=== PATIENT | female | born 1965 | race African-American/Black ===

== ENCOUNTER 2017-09-25 10:24 | Inpatient (IN) | payer MEDICAID, OTHER ==
[~2017-09-25] VITALS: Ht 175.3 cm; Wt 91.6 kg
[2017-09-25] VITALS (7 sets, daily range): BP systolic 153–183; BP diastolic 94–111; PULSE 80–110; RESP 16–20; TEMP 98.1; O2SAT 96–98
[2017-09-25 11:07] LABS: BASOPHIL # 0.1 TH/MM3 (0-0.2); EOSINOPHIL # 0.5 TH/MM3 (0-0.4); EOSINOPHIL % 6.7 % (0.0-4.0); HEMATOCRIT 47.3 % (35.0-46.0); HEMO FLAGS DIFF FINAL; LYMPH % 23.5 % (9.0-44.0); LYMPHOCYTE # 1.9 TH/MM3 (1.0-4.8); MEAN CELL VOLUME 90.2 FL (80.0-100.0); MEAN CORPUSCULAR HEMOGLOBIN 28.9 PG (27.0-34.0); NEUT % 62.8 % (16.0-70.0); PLATELET COUNT 238 TH/MM3 (150-450); RED BLOOD COUNT 5.24 MIL/MM3 (4.00-5.30)
--- NOTE | 2017-09-25 11:09 | PD ---
HPI Chief Complaint: Psychiatric Symptoms Time Seen by Provider: 11:05 Travel History International Travel<30 days: No Contact w/Intl Traveler<30days: No Traveled to known affect area: No History of Present Illness HPI 52-year-old Afro-Vincentian female presents the emergency department with voluntary psychiatric problems. Patient reports severe depression with thoughts of desire to burn her house down. She denies threat to other people or herself. She states she is severely depressed and tearful. She also has history of COPD with increased cough and wheezing the last week. Patient denies fever, chills, or other symptoms. Patient has history of this in the past. She denies nausea or vomiting. He is complaining of generalized itching and pruritus over the past week. Patient admits to using cocaine 4 days ago. She denies current chest pain or palpitations. Preliminary labs ordered in triage as well as EKG. Patient has no known drug allergies. PFSH Past Medical History Cardiovascular Problems: Yes Social History Tobacco Use: Yes Substance Use: Yes Allergies-Medications (Allergen,Severity, Reaction): Coded Allergies: No Known Allergies (Unverified , 09/25/17) Review of Systems Except as stated in HPI: all other systems reviewed are Neg General / Constitutional: No: Fever, Chills Eyes: No: Visual changes HENT: No: Headaches, Vertigo, Lightheadedness, Sore Throat, Rhinitis, Rhinorrhea, Congestion, Nosebleed, Neck Stiffness, Neck Pain, Dental Difficulties, Earache Cardiovascular: No: Chest Pain or Discomfort Respiratory: Positive: Cough, Shortness of Breath, Wheezing, No: Sneezing, Orthopnea, Hemoptysis, Night Sweats, Pleuritic Pain Gastrointestinal: No: Nausea, Vomiting, Diarrhea, Abdominal Pain Genitourinary: No: Dysuria Musculoskeletal: No: Pain Skin: No Rash Neurologic: No: Weakness Psychiatric: Positive: Depression, Other Endocrine: No: Polydipsia Hematologic/Lymphatic: No: Easy Bruising Physical Exam Narrative GENERAL: Patient appears tearful and depressed SKIN: Warm and dry. HEAD: Atraumatic. Normocephalic. EYES: Pupils equal and round. No scleral icterus. No injection or drainage. ENT: No nasal bleeding or discharge. Mucous membranes pink and moist. Pharynx is clear. Airway is patent. TMs are clear. NECK: Trachea midline. Supple nontender. CARDIOVASCULAR: Regular rate and rhythm. RESPIRATORY: No accessory muscle use. Moderate diffuse wheezes throughout to auscultation. Breath sounds equal bilaterally. GASTROINTESTINAL: Abdomen soft, non-tender, nondistended. Hepatic and splenic margins not palpable. MUSCULOSKELETAL: Extremities without clubbing, cyanosis, or edema. No obvious deformities. NEUROLOGICAL: Awake and alert. No obvious cranial nerve deficits. Motor grossly within normal limits. Five out of 5 muscle strength in the arms and legs. Normal speech. PSYCHIATRIC: Depressed mood and sad affect; insight and judgment normal. Patient tearful. Data Data Last Documented VS Vital Signs Date Time Temp Pulse Resp B/P (MAP) Pulse Ox O2 Delivery O2 Flow Rate FiO2 09/25/17 11:58 97 21 09/25/17 11:45 Nasal Cannula 2.00 09/25/17 11:45 16 09/25/17 10:24 98.1 110 Orders Orders Complete Blood Count With Diff (09/25/17 10:30) Comprehensive Metabolic Panel (09/25/17 10:30) Urinalysis - C+S If Indicated (09/25/17 10:30) Psych Screen (09/25/17 10:30) Drug Screen, Random Urine (09/25/17 10:30) Alcohol (Ethanol) (09/25/17 10:30) Electrocardiogram (09/25/17 ) Chest, Single Ap (09/25/17 11:05) Ecg Monitoring (09/25/17 11:05) Iv Access Insert/Monitor (09/25/17 11:05) Oximetry (09/25/17 11:05) Oxygen Administration (09/25/17 11:05) Prednisone (Deltasone) (09/25/17 11:15) Albuterol-Ipratropium Neb (Duoneb Neb) (09/25/17 11:15) Sodium Chloride 0.9% Flush (Ns Flush) (09/25/17 11:15) Diphenhydramine Inj (Benadryl Inj) (09/25/17 11:15) Azithromycin (Zithromax) (09/25/17 11:15) Urine Culture (09/25/17 10:36) Ceftriaxone Inj (Rocephin Inj) (09/25/17 11:15) Labs Laboratory Tests Test 09/25/17 10:36 09/25/17 10:47 Urine Color YELLOW Urine Turbidity CLOUDY Urine pH 6.0 Urine Specific [place] 1.020 Urine Protein 100 mg/dL Urine Glucose (UA) NEG mg/dL Urine Ketones NEG mg/dL Urine Occult Blood MOD Urine Nitrite NEG Urine Bilirubin NEG Urine Urobilinogen LESS THAN 2.0 MG/DL Urine Leukocyte Esterase LARGE Urine RBC 35 /hpf Urine WBC /hpf Urine Squamous Epithelial Cells 43 /hpf Urine Bacteria MOD /hpf Urine Hyaline Casts 11 /lpf Urine Mucus FEW /lpf Microscopic Urinalysis Comment CULTURE INDICATED White Blood Count 8.0 TH/MM3 Red Blood Count 5.24 MIL/MM3 Hemoglobin 15.1 GM/DL Hematocrit 47.3 % Mean Corpuscular Volume 90.2 FL Mean Corpuscular Hemoglobin 28.9 PG Mean Corpuscular Hemoglobin Concent 32.0 % Red Cell Distribution Width 15.0 % Platelet Count 238 TH/MM3 Mean Platelet Volume 8.9 FL Neutrophils (%) (Auto) 62.8 % Lymphocytes (%) (Auto) 23.5 % Monocytes (%) (Auto) 6.0 % Eosinophils (%) (Auto) 6.7 % Basophils (%) (Auto) 1.0 % Neutrophils # (Auto) 5.0 TH/MM3 Lymphocytes # (Auto) 1.9 TH/MM3 Monocytes # (Auto) 0.5 TH/MM3 Eosinophils # (Auto) 0.5 TH/MM3 Basophils # (Auto) 0.1 TH/MM3 CBC Comment DIFF FINAL Differential Comment Blood Urea Nitrogen 15 MG/DL Creatinine 1.95 MG/DL Random Glucose 80 MG/DL Total Protein 7.2 GM/DL Albumin 3.4 GM/DL Calcium Level 9.0 MG/DL Alkaline Phosphatase 91 U/L Aspartate Amino Transf (AST/SGOT) 21 U/L Alanine Aminotransferase (ALT/SGPT) 35 U/L Total Bilirubin 0.9 MG/DL Sodium Level 142 MEQ/L Potassium Level 3.8 MEQ/L Chloride Level 108 MEQ/L Carbon Dioxide Level 25.8 MEQ/L Anion Gap 8 MEQ/L Estimat Glomerular Filtration Rate 33 ML/MIN Ethyl Alcohol Level LESS THAN 3 MG/DL MDM Medical Decision Making Medical Screen Exam Complete: Yes Emergency Medical Condition: Yes Medical Record Reviewed: Yes Differential Diagnosis COPD with acute exacerbation. Wheezing. Depression. Need for psychiatric eval. Narrative Course Patient appears medically stable at time of exam. Labs ordered including CBC, CMP, psychiatric panel, and serum EtOH Chest x-ray and EKG is ordered. IV access is obtained patient is given 125 mg Solu-Medrol IV as well as 500 mg azithromycin by mouth. Patient given Rocephin 1000 mg IV. Patient is given DuoNeb 3. Patient is given Benadryl 25 mg IV. Psychiatric screening is ordered. CBC is unremarkable. CMP is unremarkable except for a BUN 15 and creatinine of 1.95. GFR is estimated at 33. I have no previous labs to compare. Urinalysis suggests obvious UTI. Serum EtOH is less than 3. Patient will be continued on Keflex 500 mg 3 times a day 7 days. Patient is medically cleared for psychiatric evaluation. Diagnosis Primary Impression: Medical clearance for psychiatric admission Additional Impressions: COPD exacerbation UTI (urinary tract infection) Qualified Codes: N30.00 - Acute cystitis without hematuria Condition: Stable Bartolo Herrera Sep 25, 2017 11:09
[2017-09-25 11:11] LABS: BACTERIA, URINE MOD /hpf; BLOOD, URINE MOD (NEG); COMMENT (UR) CULTURE INDICATED; CULTURE IF INDICATED CULTURE INDICATED; GLUCOSE,URINE NEG (NEG); HYALINE CAST, URINE 11 /lpf (RARE); KETONE, URINE NEG (NEG); MUCUS URINE FEW /lpf (OCC); NITRITE,URINE NEG (NEG); SQUAMOUS EPITHELIAL CELL URINE 43 /hpf (0-5); URINE COLOR YELLOW (YELLW/STRAW)
[2017-09-25] MEDS ORDERED: AZITHROMYCIN 250 MG TAB PO ONE (11:15)
[2017-09-25] MEDS ORDERED: cefTRIAXone INJ 1,000 MG in SODIUM CHLORIDE 0.9% INJ 100 ML IV ONE (11:15)
[2017-09-25] MEDS ORDERED: SODIUM CHLORIDE 0.9% FLUSH 10 ML FLUSH IVF PRN (11:15)
[2017-09-25] MEDS ORDERED: predniSONE 20 MG TAB PO ONE (11:15)
[2017-09-25] MEDS ORDERED: diphenhydrAMINE HCL 50 MG/ML VIAL IV PUSH ONE (11:15)
--- NOTE | 2017-09-25 11:34 | RADRPT ---
EXAM DATE/TIME: 09/25/2017 11:17 [facility] COMPARISON: No previous studies available for comparison. INDICATIONS : Shortness of breath. MEDICAL HISTORY : Smoker. SURGICAL HISTORY : Pacemaker. ENCOUNTER: Initial ACUITY: 2 days PAIN SCORE: 0/10 LOCATION: Bilateral chest FINDINGS: The lungs are clear. The heart is minimally enlarged. The pulmonary vascularity is normal. There is n o evidence for infiltrate or failure. Pacer on the left good position. The portion of the bony skeleton visualized is unremarkable. CONCLUSION: Compensated cardiomegaly otherwise negative Johan Richardson MD FACR on September 25, 2017 at 11:31 Board Certified Radiologist. This report was verified electronically.
[2017-09-25 11:35] LABS: ALKALINE PHOSPHATASE 91 U/L (45-117); TOTAL BILIRUBIN ADULT 0.9 MG/DL (0.2-1.0)
[2017-09-25 11:36] LABS: ALCOHOL LESS THAN 3 MG/DL (0-5); ALT (GPT) 35 U/L (10-53); ANION GAP 8 MEQ/L (5-15); AST (GOT) 21 U/L (15-37); BICARBONATE 25.8 MEQ/L (21.0-32.0); BLOOD UREA NITROGEN 15 MG/DL (7-18); CHLORIDE 108 MEQ/L (98-107); GLOMERULAR FILTRATION RATE 33 ML/MIN (>89); POTASSIUM 3.8 MEQ/L (3.5-5.1); SODIUM (NA) 142 MEQ/L (136-145)
[2017-09-25] MEDS: RESP: ALBUTEROL 2.5 MG/IPRATROPIUM 0.5 MG NEB (SCH) INH (11:57)
[2017-09-25] MEDS ORDERED: CEPH-460 PO (12:28)
[2017-09-25] MEDS ORDERED: METOPROLOL TARTRATE 100 MG TAB PO ONE (15:45)
[2017-09-25] MEDS ORDERED: FUROSEMIDE 40 MG TAB PO ONE (15:45)
[2017-09-25] MEDS ORDERED: ENALAPRIL MALEATE 5 MG TAB PO ONE (15:45)
[2017-09-25] MEDS ORDERED: amLODIPine BESYLATE 5 MG TAB PO ONE (15:45)
[2017-09-25] MEDS ORDERED: SPIRONOLACTONE 25 MG TAB PO ONE (15:45)
[2017-09-25] MEDS ORDERED: DOCU1CAP66 (16:20)
[2017-09-25] MEDS ORDERED: AMLO5TAB2 PO (16:20)
[2017-09-25] MEDS ORDERED: ASPI-516 CHEW (16:20)
[2017-09-25] MEDS ORDERED: HYDR-3801 PO (16:20)
[2017-09-25] MEDS ORDERED: SERT-129 PO (16:20)
[2017-09-25] MEDS ORDERED: SPIR25TA PO (16:20)
[2017-09-25] MEDS ORDERED: POTA10TA2 PO (16:20)
[2017-09-25] MEDS ORDERED: ENAL5TAB PO (16:20)
[2017-09-25] MEDS ORDERED: RISP2TAB2 PO (16:20)
[2017-09-25] MEDS ORDERED: TRAZ50TA12 PO (16:20)
[2017-09-25] MEDS ORDERED: METO1TAB43 PO (16:20)
[2017-09-25] MEDS ORDERED: MULT1TAB46 (16:20)
[2017-09-25] MEDS ORDERED: FURO40TA PO (16:20)
--- NOTE | 2017-09-25 19:51 | PD ---
History of Present Illness Chief Complaint: Psychiatric Symptoms Time Seen by Provider: 19:20 Travel History International Travel<30 Days: No Contact w/Intl Traveler<30days: No Known affected area: No Legal Status Legal Status: Voluntary History of Present Illness: History of Present Illness HPI 52-year-old Afro-Italian female with history of schizoaffective disorder, cocaine abuse, substance-induced mood disorder, who presents the emergency department on a voluntary status requesting psychiatric evaluation. Patient is well known to this repairer typewriter from previous psychiatric screening. She currently has another record under [facility]y Ram[facility]. She reports that she has been increasingly depressed with poor sleep, low energy level, spending a lot of time in bed. Also reports that she is having homicidal ideation towards a cousin of her home she feels is antagonizing her. Stressors reported include the of her mother approximately a year and a half ago, her strained relationship with her half sister and her cousin, and her multiple medical problems. Patient stopped taking her psychiatric medications as well as her other medical medications several weeks ago. She states "when I get depressed I stopped taking my medicine". She also reports that she used cocaine 4 days ago. Current toxicology is negative. Patient has not acted on her thoughts and comes into the hospital with expectation of resuming her medications as well as to maintain her safety.. She is alert, oriented female who is engaging and cooperative, speech is clear, logical, goal-directed. She denies any hallucinations, delusions or paranoia. She denies suicidal ideation. Endorses continued thoughts of wanting to harm her cousin as well as increased symptoms of depression. PFSH Past Medical History Cardiovascular Problems: Yes (defibrilator) ?: Not Psychiatric History Psychiatric History Hx Psychiatric Treatment: Hx tx @ [facility] [place]. Last psychiatric admission February 2017 under the care of Dr. Das. Has outpatient treatment at [facility]. History of Inpatient Treatment: Yes Guns or firearms in home: No Social History female, lives with her cousins. Unemployed and on disability. Patient has past legal history including incarceration for charges related to arson. Hx Alcohol Use: No Hx Tobacco Use: Yes Hx Substance Use: Yes (HX of cocaine) Substance Use Type: Crack, Cocaine Other Substances Used: Admits she relapsed 1 week ago Hx of Substance Use Treatment: Yes Family Psychiatric History Negative Allergies-Medications (Allergen,Severity, Reaction): Coded Allergies: No Known Allergies (Unverified , 09/25/17) Reported Meds & Prescriptions Reported Meds & Active Scripts Active Keflex (Cephalexin) 500 Mg Capsule 500 Mg PO Q8H 7 Days Reported Spironolactone 25 Mg Tab 25 Mg PO BIDPC Sertraline (Sertraline HCl) 100 Mg Tab 100 Mg PO DAILY Trazodone (Trazodone HCl) 50 Mg Tab 50 Mg PO HS Potassium Chloride ER (Potassium Chloride) 10 Meq Tab 10 Meq PO DAILY Hydralazine (Hydralazine HCl) 100 Mg Tab 25 Mg PO BID Take with meals Aspirin 81 Mg Chew 81 Mg CHEW DAILY Risperidone 2 Mg Tab 2 Mg PO DAILY Metoprolol Succinate ER 24 HR (Metoprolol Succinate) 100 Mg Tab 100 Mg PO DAILY Amlodipine (Amlodipine Besylate) 5 Mg Tab 5 Mg PO DAILY Multi Vitamin Daily (Multiple Vitamin) 1 Tab Tab DAILY Furosemide 40 Mg Tab 40 Mg PO DAILY Stool Softener (Docusate Sodium) 100 Mg Cap PRN Enalapril (Enalapril Maleate) 5 Mg Tab 5 Mg PO BID Review of Systems Constitutional: COMPLAINS OF: Fatigue Respiratory: COMPLAINS OF: Apneas, Cough, Shortness of breath Cardiovascular: COMPLAINS OF: Chest pain Integumentary: COMPLAINS OF: Pruritus Psychiatric: COMPLAINS OF: Depression, Homicidal Ideation Mental Status Examination Appearance: Appropriate (appears older than stated age.) Consciousness: Alert Orientation: x4 Motor Activity: Normal gait Speech: Unremarkable Language: Adequate Fund of Knowledge: Adequate Attention and Concentration: Adequate Memory: Unremarkable Mood: Sad Affect: Appropriate Thought Process & Associations: Intact Thought Content: Appropriate Hallucination Type: None Delusion Type: None Suicidal Ideation: No Suicidal Plan: No Suicidal Intention: No Homicidal Ideation: Yes Homicidal Plan: No Homicidal Intention: No Insight: Fair Judgment: Poor MDM Medical Decision Making Medical Record Reviewed: Yes Assessment/Plan 52-year-old Afro-Italian female with history of schizoaffective disorder, cocaine abuse, substance-induced mood disorder, who presents the emergency department on a voluntary status requesting psychiatric evaluation. She currently has another record under Pinky Ramírez. She reports that she stopped taking her medications several weeks ago and has experienced increase in symptoms of depression including poor sleep, low energy level, anhedonia, as well as experiencing thoughts of wanting to harm her cousin. Patient also admits to having used cocaine 4 days ago. She reports that she feels overwhelmed with multiple medical problems at this time and this is contributing to her symptoms of depression. At this time the patient meets criteria for inpatient psychiatric treatment for further evaluation, to restart her psychiatric medication, and to maintain safety. She agrees to voluntary admission. Orders Orders Complete Blood Count With Diff (09/25/17 10:30) Comprehensive Metabolic Panel (09/25/17 10:30) Urinalysis - C+S If Indicated (09/25/17 10:30) Psych Screen (09/25/17 10:30) Drug Screen, Random Urine (09/25/17 10:30) Alcohol (Ethanol) (09/25/17 10:30) Electrocardiogram (09/25/17 ) Chest, Single Ap (09/25/17 11:05) Ecg Monitoring (09/25/17 11:05) Iv Access Insert/Monitor (09/25/17 11:05) Oximetry (09/25/17 11:05) Oxygen Administration (09/25/17 11:05) Prednisone (Deltasone) (09/25/17 11:15) Albuterol-Ipratropium Neb (Duoneb Neb) (09/25/17 11:15) Sodium Chloride 0.9% Flush (Ns Flush) (09/25/17 11:15) Diphenhydramine Inj (Benadryl Inj) (09/25/17 11:15) Azithromycin (Zithromax) (09/25/17 11:15) Urine Culture (09/25/17 10:36) Ceftriaxone Inj (Rocephin Inj) (09/25/17 11:15) Furosemide (Lasix) (09/25/17 15:45) Enalapril (Vasotec) (09/25/17 15:45) Metoprolol Tartrate (Lopressor) (09/25/17 15:45) Amlodipine (Norvasc) (09/25/17 15:45) Spironolactone (Aldactone) (09/25/17 15:45) Diet Regular Basic (09/25/17 Dinner) Results Vital Signs Date Time Temp Pulse Resp B/P (MAP) Pulse Ox O2 Delivery O2 Flow Rate FiO2 09/25/17 18:02 88 18 159/109 (126) 98 Room Air 09/25/17 15:33 98 18 183/111 (135) 97 Room Air 09/25/17 14:01 98 18 158/94 (115) 96 Room Air 09/25/17 11:58 97 21 09/25/17 11:45 96 Nasal Cannula 2.00 09/25/17 11:45 16 96 Nasal Cannula 2.00 09/25/17 10:24 98.1 110 20 163/105 (124) 97 Room Air Laboratory Tests Test 09/25/17 10:36 09/25/17 10:47 Urine Color YELLOW Urine Turbidity CLOUDY Urine pH 6.0 Urine Specific [place] 1.020 Urine Protein 100 Urine Glucose (UA) NEG Urine Ketones NEG Urine Occult Blood MOD Urine Nitrite NEG Urine Bilirubin NEG Urine Urobilinogen LESS THAN 2.0 Urine Leukocyte Esterase LARGE Urine RBC 35 Urine WBC Urine Squamous Epithelial Cells 43 Urine Bacteria MOD Urine Hyaline Casts 11 Urine Mucus FEW Microscopic Urinalysis Comment CULTURE INDICATED White Blood Count 8.0 Red Blood Count 5.24 Hemoglobin 15.1 Hematocrit 47.3 Mean Corpuscular Volume 90.2 Mean Corpuscular Hemoglobin 28.9 Mean Corpuscular Hemoglobin Concent 32.0 Red Cell Distribution Width 15.0 Platelet Count 238 Mean Platelet Volume 8.9 Neutrophils (%) (Auto) 62.8 Lymphocytes (%) (Auto) 23.5 Monocytes (%) (Auto) 6.0 Eosinophils (%) (Auto) 6.7 Basophils (%) (Auto) 1.0 Neutrophils # (Auto) 5.0 Lymphocytes # (Auto) 1.9 Monocytes # (Auto) 0.5 Eosinophils # (Auto) 0.5 Basophils # (Auto) 0.1 CBC Comment DIFF FINAL Differential Comment Blood Urea Nitrogen 15 Creatinine 1.95 Random Glucose 80 Total Protein 7.2 Albumin 3.4 Calcium Level 9.0 Alkaline Phosphatase 91 Aspartate Amino Transf (AST/SGOT) 21 Alanine Aminotransferase (ALT/SGPT) 35 Total Bilirubin 0.9 Sodium Level 142 Potassium Level 3.8 Chloride Level 108 Carbon Dioxide Level 25.8 Anion Gap 8 Estimat Glomerular Filtration Rate 33 Ethyl Alcohol Level LESS THAN 3 Date/Time Source Procedure Growth Status 09/25/17 10:36 Urine Clean Catch Urine Culture Pending Worksheet Diagnosis Primary Impression: Schizoaffective disorder Additional Impression: Substance induced mood disorder Admitting Information Admitting Physician Requests: Admit Departure Forms: Tests/Procedures Patient Instructions: General Instructions, Cephalexin (By mouth), COPD ( Chronic Obstructive Pulmonary Disease) (ED) Prescriptions Cephalexin (Keflex) 500 Mg Capsule 500 MG PO Q8H for Infection for 7 Days, #21 CAP 0 Refills Prov: Marce Elizondo DO 09/25/17 Condition: Stable Problem Qualifiers Primary Impression: Schizoaffective disorder Qualified Codes: F25.1 - Schizoaffective disorder, depressive type Emily Zepeda [facility] Sep 25, 2017 19:51
[2017-09-25] MEDS ORDERED: MAGNESIUM HYDROXIDE SUSP 30 ML CUP PO PRN (20:00)
[2017-09-25] MEDS ORDERED: ALUMINUM/MAGNESIUM/SIMETH 30 ML CUP PO PRN (20:00)
[2017-09-25] MEDS ORDERED: ACETAMINOPHEN 325 MG TAB PO PRN (20:00)
[2017-09-25] MEDS: traZODone HCL 50 MG TAB PO SCH (22:22)
[2017-09-25] MEDS: hydrALAZINE HCL 25 MG TAB PO SCH (22:22)
--- NOTE | 2017-09-25 22:22 | EKG ---
Date Performed: 09/25/2017 Time Performed: 10:39:27 PTAGE: 52 years EKG: SINUS TACHYCARDIA LEFT ATRIAL ENLARGEMENT BORDERLINE LEFT AXIS DEVIATION LEFT VENTRICULAR H YPERTROPHY AND ST-T CHANGE ABNORMAL ECG NO PREVIOUS TRACING DOCTOR: Regulo Steve Interpretating Date/Time 09/25/2017 22:21:57
[2017-09-25] MEDS: CEPHALEXIN MONOHYDRATE 500 MG CAP PO SCH (23:42)
[2017-09-25] MEDS: ENALAPRIL MALEATE 5 MG TAB PO SCH (23:42)
[2017-09-26 00:19] VITALS: BP 143/94; PULSE 80; RESP 16; TEMP 98.2
[2017-09-26 05:50] VITALS: BP 144/95; PULSE 77; RESP 16; TEMP 98; O2SAT 95
[2017-09-26] MEDS: CEPHALEXIN MONOHYDRATE 500 MG CAP PO SCH ×3 (05:58→20:33)
[2017-09-26] MEDS: ENALAPRIL MALEATE 5 MG TAB PO SCH ×2 (09:53→20:31)
[2017-09-26] MEDS: hydrALAZINE HCL 25 MG TAB PO SCH ×2 (09:54→20:30)
[2017-09-26] MEDS: FUROSEMIDE 40 MG TAB PO SCH (09:54)
[2017-09-26] MEDS: SPIRONOLACTONE 25 MG TAB PO SCH ×2 (09:54→18:00)
[2017-09-26] MEDS: METOPROLOL SUCCINATE 50 MG EXTENDED RELEASE TAB PO SCH (09:54)
[2017-09-26] MEDS: amLODIPine BESYLATE 5 MG TAB PO SCH (09:54)
[2017-09-26] MEDS: ASPIRIN 81 MG CHEW TAB CHEW SCH (09:55)
[2017-09-26] MEDS: POTASSIUM CHLORIDE 10 MEQ CONTROLLED RELEASE TAB PO SCH (09:55)
--- NOTE | 2017-09-26 12:35 | HHI.HP ---
Provisional Diagnosis Admission Date Sep 25, 2017 at 20:02 [place]. Schizoaffective disorder bipolar type f 25.0, cocaine abuse Certification of Person's Competence To Provide Express and Informed Consent I have personally examined Pinky Ramírez , a person being served at [facility] on, Sep 26, 2017 12:25. Express and informed consent means consent voluntarily given in writing, by a competent person, after sufficient explanation and disclosure of the subject matter involved to enable the person to make a knowing and willful decision without any element of force, fraud, deceit, duress, or other form of constraint or coercion. This person is 18 years of age or older, is not now known to be incompetent to consent to treatment with a guardian advocate, and does not have a health care surrogate or proxy currently making medical treatment decisions. I have found this person to be one of the following: []xxxx Competent to provide express and informed consent, as defined above, for voluntary admission to this facility and is competent to provide express and informed consent for treatment. He/she has the consistent capacity to make well reasoned, willful, and knowing decisions concerning his or her medical or mental health treatment. The person fully and consistently understands the purpose of the admission for examination/placement and is fully capable of personally exercising all rights assured [place] Incompetent to provide express and informed consent to voluntary admission, and this is incompetent to provide express and informed consent to treatment. The person must be transferred to involuntary status and a petition for a guardian advocate filed with the Circuit Court. [] Refusing to provide express and informed consent to voluntary admission but is competent to provide express and informed consent for treatment. The person must be discharged or transferred to involuntary status. Form shall be completed within 24 hours of a person's arrival at the receiving facility and filed in the clinical record of each person: 1. Admitted on a voluntary basis 2. Permitted to provide express and informed consent to his/her own treatment 3. Allowed to transfer from involuntary to voluntary status 4. Prior to permitting a person to consent to his or her own treatment after having been previously found incompetent to consent to treatment. History of Present Illness Capacity: Has Capacity Psych Chief Complaint: patient depressed vague suicidal ideation HPI Patient is a 52-year-old Afro-Niuean female known to me from prior contact. [facility] she also has a different hospital number than the one listed above were the hospital number is [id number] I saw her in early February of this year under visit [phone]. She has a long history of cocaine abuse with multiple medical issues including cardiac issues. With the last hospitalization in February she was transferred to the medical service. She had cardiac issues. She was discharged at that medical admission after being consulted with Dr. Anderson. Discharged on Resporal 1 mg twice a day. She states she went to live with a family member and it drug infested area. In April of this year she did have a cardiac pacemaker implanted. She was noncompliant with psychotropic medications or psychiatric follow-up. She did develop increased depression with initial and mid insomnia a.m. anergy and increased crying spells. This led to her relapse into her cocaine use about a week or 2 ago. She denies voices or visions other some vague tactile hallucinations present there is increase suicidal ideation and intent. Patient did come here on a voluntary basis. The urine toxicology and this admission is also positive for cocaine and negative for alcohol. This time patient does meet criteria for inpatient psychiatric hospitalization will restart her on her Respinol 1 mg twice a day, Zoloft 50 mg in the morning trazodone 50 mg at at bedtime and Atarax 50 mg when necessary. Will refrain from benzodiazepines and opiates. Though the hospitalist consult with us. We did discuss discharge plans patient does have a daughter in [place] that may be willing to take her in when she stabilizes need to work with that or perhaps an [facility]. Review of Systems Constitutional: DENIES: Diaphoretic episodes, Fatigue, Fever, Weight gain, Weight loss, Chills, Dizziness, Change in appetite, Night Sweats Endocrine: DENIES: Abnorml menstrual pattern, Heat/cold intolerance, Polydipsia , Polyuria, Polyphagia Eyes: DENIES: Blurred vision, Diplopia, Eye inflammation, Eye pain, Vision loss , Photosensitivity, Double Vision Ears, nose, mouth, throat: DENIES: Tinnitus, Hearing loss, Vertigo, Nasal discharge, Oral lesions, Throat pain, Hoarseness, Ear Pain, Running Nose, Epistaxis, Sinus Pain, Toothache, Odynophagia Respiratory: DENIES: Apneas, Cough, Snoring, Wheezing, Hemoptysis, Sputum production, Shortness of breath Cardiovascular: DENIES: Chest pain, Palpitations, Syncope, Dyspnea on Exertion , PND, Lower Extremity Edema, Orthopnea, Claudication Gastrointestinal: DENIES: Abdominal pain, Black stools, Bloody stools, Constipation, Diarrhea, Nausea, Vomiting, Difficulty Swallowing, Anorexia Genitourinary: DENIES: Abnormal vaginal bleeding, Dysmenorrhea, Dyspareunia, Sexual dysfunction, Urinary frequency, Urinary incontinence, Urgency, Hematuria , Dysuria, Nocturia, Vaginal discharge Musculoskeletal: DENIES: Joint pain, Muscle aches, Stiffness, Joint Swelling, Back pain, Neck pain Integumentary: DENIES: Abnormal pigmentation, Pruritus, Rash, Nail changes, Breast masses, Breast skin changes, Nipple discharge Hematologic/lymphatic: DENIES: Bruising, Lymphadenopathy Immunologic/allergic: DENIES: Eczema, Urticaria Neurologic: DENIES: Abnormal gait, Headache, Localized weakness, Paresthesias, Seizures, Speech Problems, Tremor, Poor Balance Psychiatric: COMPLAINS OF: Anxiety, Depression, Hallucinations, Suicidal Ideation (vague tactile vague) Past Psych History Psychological trauma history Patient denies Violence risk - others (6 mos) Low Violence risk - self (6 mos) Low to moderate Substance Abuse History Drugs/Alcohol past 12 months Active cocaine abuser Past Family Social History Coded Allergies: No Known Allergies (Unverified , 09/25/17) Active Scripts Cephalexin (Keflex) 500 Mg Capsule, 500 MG PO Q8H for Infection for 7 Days, #21 CAP 0 Refills Prov:ElizondoMarce Elie PARTIDA 09/25/17 Reported Medications Spironolactone (Spironolactone) 25 Mg Tab, 25 MG PO BIDPC, #60 TAB 0 Refills 09/25/17 Sertraline (Sertraline) 100 Mg Tab, 100 MG PO DAILY, #30 TAB 0 Refills 09/25/17 Trazodone (Trazodone) 50 Mg Tab, 50 MG PO HS for Control Depression, #30 TAB 0 Refills 09/25/17 Potassium Chloride ER (Potassium Chloride ER) 10 Meq Tab, 10 MEQ PO DAILY for Electrolyte Replacement, #30 TAB 0 Refills 09/25/17 Hydralazine (Hydralazine) 100 Mg Tab, 25 MG PO BID for Blood Pressure Management , TAB 0 Refills Take with meals 09/25/17 Aspirin (Aspirin) 81 Mg Chew, 81 MG CHEW DAILY, TAB 0 Refills 09/25/17 Risperidone (Risperidone) 2 Mg Tab, 2 MG PO DAILY, #30 TAB 0 Refills 09/25/17 Metoprolol Succinate ER 24 HR (Metoprolol Succinate ER 24 HR) 100 Mg Tab, 100 MG PO DAILY, #30 TAB 0 Refills 09/25/17 Amlodipine (Amlodipine) 5 Mg Tab, 5 MG PO DAILY for Blood Pressure Management, # 30 TAB 0 Refills 09/25/17 Multiple Vitamin (Multi Vitamin Daily) 1 Tab Tab, DAILY 09/25/17 Furosemide (Furosemide) 40 Mg Tab, 40 MG PO DAILY, #30 TAB 0 Refills 09/25/17 Docusate Sodium (Stool Softener) 100 Mg Cap, Y for PRN 09/25/17 Enalapril (Enalapril) 5 Mg Tab, 5 MG PO BID, #60 TAB 0 Refills 09/25/17 Current Medications Medications (Trade) Dose Ordered Sig/Fadi Route Start Time Stop Time Status Last Admin (NS Flush) 2 ml UNSCH PRN IVF 09/25/17 11:15 (Tylenol) 650 mg Q4H PRN PO 09/25/17 20:00 (Milk Of Magnesia Liq) 30 ml DAILY PRN PO 09/25/17 20:00 (Mag-Al Plus Susp Liq) 30 ml Q6H PRN PO 09/25/17 20:00 (Norvasc) 5 mg DAILY PO 09/26/17 09:00 09/26/17 09:54 (Aspirin Chew) 81 mg DAILY CHEW 09/26/17 09:00 09/26/17 09:55 (Keflex) 500 mg Q8HR PO 09/25/17 22:00 09/26/17 05:58 (Vasotec) 5 mg BID PO 09/25/17 21:00 09/26/17 09:53 (Lasix) 40 mg DAILY PO 09/26/17 09:00 09/26/17 09:54 (Apresoline) 25 mg BID PO 09/25/17 21:00 09/26/17 09:54 (KCl) 10 meq DAILY PO 09/26/17 09:00 09/26/17 09:55 (Aldactone) 25 mg BIDPC PO 09/26/17 09:00 09/26/17 09:54 (Desyrel) 50 mg HS PO 09/25/17 21:00 09/25/17 22:22 (Toprol Xl) 100 mg DAILY PO 09/26/17 09:00 09/26/17 09:54 Family Psych History Patient multiple hospitalizations for mental health issues under different hospital number which is [id number] Social History Patient was staying with relative Patient's Strengths (min. 2) Patient verbal label axis health care Physical Exam Patient medically cleared in ED at the present time patient quietly in her room nurse Clary present throughout session, patient no acute distress patient no respiratory distress, no complaints of abdominal pain, moves all 4 extremities without difficulty, no abnormal motor movements noted Vital Signs Vital Signs Date Time Temp Pulse Resp B/P (MAP) Pulse Ox O2 Delivery O2 Flow Rate FiO2 09/26/17 05:50 98.0 77 16 144/95 (111) 95 09/25/17 20:41 Room Air 09/25/17 11:58 21 09/25/17 11:45 2.00 Lab Results Date/Time Source Procedure Growth Status 09/25/17 10:36 Urine Clean Catch Urine Culture Pending Worksheet Mental Status Examination Appearance: Appropriate (appears older than stated age.) Consciousness: Alert Orientation: x4 Motor Activity: Normal gait Speech: Unremarkable Language: Adequate Fund of Knowledge: Adequate Attention and Concentration: Adequate Memory: Unremarkable Mood: Sad Affect: Other (slight decrease range and intensity) Thought Process & Associations: Intact Thought Content: Appropriate Hallucination Type: None, Tactile (vague feeling things are skin) Delusion Type: None Suicidal Ideation: No Suicidal Plan: No Suicidal Intention: No Homicidal Ideation: No Homicidal Plan: No Homicidal Intention: No Insight: Fair Judgment: Poor Assessment & Plan Problem List: (1) Schizoaffective disorder, bipolar type ICD Codes: F25.0 - Schizoaffective disorder, bipolar type (2) Cocaine abuse ICD Codes: F14.10 - Cocaine abuse, uncomplicated Assessment & Plan Estimated LOS: 57 days patient meets criteria for inpatient psychiatric hospitalization on a voluntary basis. We will restart her on her Respinol, Zoloft, trazodone and Atarax. Though the hospitalist consult will less. Will have counseled the patient related to placement issues perhaps an [facility] or perhaps staying with her daughter in [place] Discharge Planning Need to consider [facility] placement versus going with her daughter in [place] Request HC Surrog/Guard Advoc?: No Sachin Das MD Sep 26, 2017 12:35
[2017-09-26] MEDS ORDERED: PILL SPLITTER OTHER PRN (13:00)
[2017-09-26] MEDS ORDERED: EUCERIN CREAM 120 GM JAR TOPICAL PRN (13:15)
--- NOTE | 2017-09-26 13:22 | PD.CONS ---
HPI Service [facility] Hospitalists Consult Requested By Dr. Zepeda Reason for Consult assistance w medical management Primary Care Physician No Primary Care Physician Diagnoses: History of Present Illness Pt is a 52 yr old AA female w PMHx of CHF, HTN, CKD, cocaine abuse admitted to the inpatient psychiatric unit for suicidal ideation. Pt admits that she uses cocaine and last time was a week ago. pt states that she has been hearing voices on and off and they have been telling her to "burn her house down w gas" . Currently she states that she doesn't hear them, also complains of itchiness. Denies any CP/SOB/N/V/burning w urination and states that she urinates a lot as she is on a medication that makes her urinate. Pt doesn't have any complaints. states she is on many BP meds but doesn't remember the names. Per RN pt is currently being treated for a UTI. Hospitalist service consulted for medical management. Review of Systems Except as stated in HPI: all other systems reviewed are Neg Past Family Social History Allergies: Coded Allergies: No Known Allergies (Unverified , 09/25/17) Past Medical History CHF, cocaine abuse, HTN and CKD Past Surgical History tubal ligation Reported Medications Reported Meds & Active Scripts Active Keflex (Cephalexin) 500 Mg Capsule 500 Mg PO Q8H 7 Days Reported Spironolactone 25 Mg Tab 25 Mg PO BIDPC Sertraline (Sertraline HCl) 100 Mg Tab 100 Mg PO DAILY Trazodone (Trazodone HCl) 50 Mg Tab 50 Mg PO HS Potassium Chloride ER (Potassium Chloride) 10 Meq Tab 10 Meq PO DAILY Hydralazine (Hydralazine HCl) 100 Mg Tab 25 Mg PO BID Take with meals Aspirin 81 Mg Chew 81 Mg CHEW DAILY Risperidone 2 Mg Tab 2 Mg PO DAILY Metoprolol Succinate ER 24 HR (Metoprolol Succinate) 100 Mg Tab 100 Mg PO DAILY Amlodipine (Amlodipine Besylate) 5 Mg Tab 5 Mg PO DAILY Multi Vitamin Daily (Multiple Vitamin) 1 Tab Tab DAILY Furosemide 40 Mg Tab 40 Mg PO DAILY Stool Softener (Docusate Sodium) 100 Mg Cap PRN Enalapril (Enalapril Maleate) 5 Mg Tab 5 Mg PO BID Family History mother of natural causes per patient and father of a [place] Social History smokes a 1/2 ppd since age 37, denies any alcohol used but admits to using cocaine Physical Exam Vital Signs Vital Signs Date Time Temp Pulse Resp B/P (MAP) Pulse Ox O2 Delivery O2 Flow Rate FiO2 09/26/17 05:50 98.0 77 16 144/95 (111) 95 09/26/17 00:19 98.2 80 16 143/94 (110) 09/25/17 20:45 09/25/17 20:41 80 18 153/105 (121) 98 Room Air 09/25/17 18:02 88 18 159/109 (126) 98 Room Air 09/25/17 15:33 98 18 183/111 (135) 97 Room Air 09/25/17 14:01 98 18 158/94 (115) 96 Room Air Physical Exam GENERAL: AA female, laying in bed, appears comfortable. SKIN: dry skin. HEAD: Atraumatic. Normocephalic. EYES: eyes closed but does open them from time to time. Extraocular motions intact. No scleral icterus. No injection or drainage. ENT: Nose without drainage. Airway patent. NECK: Trachea midline. CARDIOVASCULAR: Regular rate and rhythm without obvious murmurs RESPIRATORY: Clear to auscultation. Breath sounds equal bilaterally. No wheezes or crackles GASTROINTESTINAL: Abdomen soft, non-tender, nondistended. No guarding. MUSCULOSKELETAL: Extremities without edema. NEUROLOGICAL: Awake and alert. Cranial nerves II through XII intact. Motor and sensory grossly within normal limits. Normal speech. Laboratory Date/Time Source Procedure Growth Status 09/25/17 10:36 Urine Clean Catch Urine Culture - Final 50-100,000 CFU/ML MIXED GRAM POSITIVE... Complete Result Diagram: 09/25/17 1047 09/25/17 1047 Imaging Last Impressions Chest X-Ray 09/25/17 1105 Signed Impressions: Service Date/Time: Monday, September 25, 2017 11:17 - CONCLUSION: Compensated cardiomegaly otherwise negative Johan Richardson MD FACR Assessment and Plan Assessment and Plan Suicidal ideation/auditory hallucination and ?tactile hallucinations: management per psych HTN: somewhat elevated since admission in the 140's. Pt's BP meds have all been resumed. added clonidine prn. heart healthy diet CHF: asymptomatic currently. place on a heart healthy diet and limit fluids to 1500ml/day. continue lasix. monitor K levels cocaine abuse: pt has been counseled on quitting acute on chronic CKD: pt admits to hx of CKD, Pt is also known as Darrell Quiñones under [id number] per Dr. Das's note. Reviewed records and Cr was 1.56 in 03/10/17. on admission Cr was 1.95. Will encourage some po hydration water 250-300ml q6hrs while awake but limit to 1500ml/day. Discussed w RN. Repeat BMP in am. DVT proph: heparin and encourage ambulation Thank you for allowing me to take part of Mrs. Ramírez's care, will follow BMP and BP's Code Status full Discussed Condition With pt and RN Chanell Du MD Sep 26, 2017 13:22
[2017-09-26] MEDS ORDERED: cloNIDine HCL 0.1 MG TAB PO PRN (13:30)
[2017-09-26] MEDS: SERTRALINE HCL 50 MG TAB PO SCH (14:33)
[2017-09-26] MEDS: risperiDONE ODT 1 MG TAB PO SCH ×2 (14:33→20:30)
[2017-09-26 18:20] LABS: ANION GAP 9 MEQ/L (5-15); BICARBONATE 28.5 MEQ/L (21.0-32.0); BLOOD UREA NITROGEN 27 MG/DL (7-18); CHLORIDE 103 MEQ/L (98-107); GLOMERULAR FILTRATION RATE 29 ML/MIN (>89); HDL CHOLESTEROL 60.4 MG/DL (40.0-60.0); LDL CHOLESTEROL 53 MG/DL (0-99); POTASSIUM 3.3 MEQ/L (3.5-5.1); SODIUM (NA) 140 MEQ/L (136-145)
[2017-09-26 18:33] VITALS: BP 146/94; PULSE 88; RESP 18; TEMP 97.6; O2SAT 98
[2017-09-26] MEDS: traZODone HCL 50 MG TAB PO SCH (20:31)
[2017-09-26] MEDS: HEPARIN SODIUM - SQ 10,000 UNITS/ML VIAL SQ SCH (21:00)
[2017-09-26 21:48] LABS: HEMOGLOBIN A1a 1.1 %; HEMOGLOBIN A1b 1.7 %; HEMOGLOBIN Ao 85.1 %; HEMOGLOBIN P3 5.3 %
[2017-09-27] MEDS: CEPHALEXIN MONOHYDRATE 500 MG CAP PO SCH ×3 (05:47→20:43)
[2017-09-27 06:31] VITALS: BP 132/64; PULSE 75; RESP 17; TEMP 97; O2SAT 100
[2017-09-27] MEDS: ASPIRIN 81 MG CHEW TAB CHEW SCH (08:34)
[2017-09-27] MEDS: risperiDONE ODT 1 MG TAB PO SCH ×2 (08:34→20:43)
[2017-09-27] MEDS: SPIRONOLACTONE 25 MG TAB PO SCH ×2 (08:34→18:56)
[2017-09-27] MEDS: METOPROLOL SUCCINATE 50 MG EXTENDED RELEASE TAB PO SCH (08:35)
[2017-09-27] MEDS: amLODIPine BESYLATE 5 MG TAB PO SCH (08:35)
[2017-09-27] MEDS: ENALAPRIL MALEATE 5 MG TAB PO SCH ×2 (08:35→20:43)
[2017-09-27] MEDS: hydrALAZINE HCL 25 MG TAB PO SCH ×2 (08:35→20:43)
[2017-09-27] MEDS: SERTRALINE HCL 50 MG TAB PO SCH (08:35)
[2017-09-27] MEDS: POTASSIUM CHLORIDE 10 MEQ CONTROLLED RELEASE TAB PO SCH (08:35)
[2017-09-27] MEDS: HEPARIN SODIUM - SQ 10,000 UNITS/ML VIAL SQ SCH ×2 (08:36→21:00)
[2017-09-27] MEDS: FUROSEMIDE 40 MG TAB PO SCH (08:36)
[2017-09-27 14:38] LABS: BICARBONATE 25.2 MEQ/L (21.0-32.0); POTASSIUM 4.2 MEQ/L (3.5-5.1)
--- NOTE | 2017-09-27 15:32 | HHI.PR ---
Subjective Remarks patient states feels depressed d/w her cocaine use- and states she used it because of she is depressed no urinary complains, nausea headaches Objective Vitals Vital Signs Date Time Temp Pulse Resp B/P (MAP) Pulse Ox O2 Delivery O2 Flow Rate FiO2 09/27/17 08:14 09/27/17 06:31 97.0 75 17 132/64 (86) 100 09/26/17 18:33 97.6 88 18 146/94 (111) 98 Result Diagram: 09/25/17 1047 09/27/17 1339 Imaging Last Impressions Chest X-Ray 09/25/17 1105 Signed Impressions: Service Date/Time: Monday, September 25, 2017 11:17 - CONCLUSION: Compensated cardiomegaly otherwise negative Johan Richardson MD FACR Objective Remarks awake and alert, appears depressed anicteric lungs0- no rales regular rhythm abdomen spft, nontender extremiteis no edema neuro examn non focal A/P Assessment and Plan 52 F Depression. Suicidal ideation/auditory hallucination and ?tactile hallucinations : management per psych HTN: good this am Pt's BP meds have all been resumed. added clonidine prn. heart healthy diet CHF: asymptomatic currently. place on a heart healthy diet and limit fluids to 1500ml/day. continue lasix. cocaine abuse: pt has been counseled on quitting acute on chronic CKD: pt admits to hx of CKD, Pt is also known as Darrell Quiñones under [id number] per Dr. Das's note. Reviewed records and Cr was 1.56 in 03/10/17. on admission Cr was 1.95. Will encourage some po hydration water 250-300ml q6hrs while awake but limit to 1500ml/day. Discussed w RN. creatinine today- near baseline DVT proph: heparin and encourage ambulation d/w patient Tutu Roblero MD Sep 27, 2017 15:32
--- NOTE | 2017-09-27 16:03 | HHI.PYPN ---
Subjective Chief Complaint: patient depressed vague suicidal ideation Remarks Patient seen in day room with nurse Oscar, chart review, showing some increased in her mood and her affect though she still says that she is depressed though she denies suicidality or voices. She is compliant with her medications. For now continue treatment Review of Systems Except as stated in HPI: all other systems reviewed are Neg Mental Status Examination Appearance: Appropriate (appears older than stated age.) Consciousness: Alert Orientation: x4 Motor Activity: Normal gait Speech: Unremarkable Language: Adequate Fund of Knowledge: Adequate Attention and Concentration: Adequate Memory: Unremarkable Mood: Sad Affect: Other (slight decrease range and intensity) Thought Process & Associations: Intact Thought Content: Appropriate Hallucination Type: None, Tactile (vague feeling things are skin) Delusion Type: None Suicidal Ideation: No Suicidal Plan: No Suicidal Intention: No Homicidal Ideation: No Homicidal Plan: No Homicidal Intention: No Insight: Fair Judgment: Poor Results Labs Test 09/26/17 16:47 09/27/17 13:39 Blood Urea Nitrogen 27 MG/DL 27 MG/DL Creatinine 2.18 MG/DL 1.94 MG/DL Random Glucose 75 MG/DL 81 MG/DL Calcium Level 8.7 MG/DL 8.7 MG/DL Sodium Level 140 MEQ/L 142 MEQ/L Potassium Level 3.3 MEQ/L 4.2 MEQ/L Chloride Level 103 MEQ/L 109 MEQ/L Carbon Dioxide Level 28.5 MEQ/L 25.2 MEQ/L Anion Gap 9 MEQ/L 8 MEQ/L Estimat Glomerular Filtration Rate 29 ML/MIN 33 ML/MIN Hemoglobin A1c 5.6 % Triglycerides Level 109 MG/DL Cholesterol Level 135 MG/DL LDL Cholesterol 53 MG/DL HDL Cholesterol 60.4 MG/DL Cholesterol/HDL Ratio 2.23 RATIO Date/Time Source Procedure Growth Status 09/25/17 10:36 Urine Clean Catch Urine Culture - Final 50-100,000 CFU/ML MIXED GRAM POSITIVE... Complete Vitals/IOs Vital Signs Date Time Temp Pulse Resp B/P (MAP) Pulse Ox O2 Delivery O2 Flow Rate FiO2 09/27/17 08:14 09/27/17 06:31 97.0 75 17 100 09/25/17 20:41 Room Air 09/25/17 11:58 21 09/25/17 11:45 2.00 Assessment & Plan Problem List: (1) Schizoaffective disorder, bipolar type ICD Codes: F25.0 - Schizoaffective disorder, bipolar type (2) Cocaine abuse ICD Codes: F14.10 - Cocaine abuse, uncomplicated Assessment & Plan Estimated LOS: days patient continues depressed though denying suicidality homicidality or voices at this time. For now continue treatment Justification for Cont. Inpt. At this time patient would decompensate the placed in a lower level of care Discharge Planning To be determined Request HC Surrog/Guard Advoc?: No Sachin Das MD Sep 27, 2017 16:03
[2017-09-27] MEDS: traZODone HCL 50 MG TAB PO SCH (20:43)
[2017-09-27 20:44] VITALS: BP 157/89; PULSE 86; RESP 17; TEMP 97.2; O2SAT 99
[2017-09-27] MEDS: hydrOXYzine HCL 50 MG TAB PO PRN (21:27)
[2017-09-28] MEDS: CEPHALEXIN MONOHYDRATE 500 MG CAP PO SCH ×3 (06:13→21:01)
[2017-09-28 06:25] VITALS: BP 132/67; PULSE 66; RESP 18; TEMP 98.3; O2SAT 99
[2017-09-28] MEDS: risperiDONE ODT 1 MG TAB PO SCH ×2 (08:32→20:19)
[2017-09-28] MEDS: ENALAPRIL MALEATE 5 MG TAB PO SCH ×2 (08:32→20:19)
[2017-09-28] MEDS: SERTRALINE HCL 50 MG TAB PO SCH (08:32)
[2017-09-28] MEDS: SPIRONOLACTONE 25 MG TAB PO SCH ×2 (08:32→18:10)
[2017-09-28] MEDS: ASPIRIN 81 MG CHEW TAB CHEW SCH (08:33)
[2017-09-28] MEDS: amLODIPine BESYLATE 5 MG TAB PO SCH (08:33)
[2017-09-28] MEDS: POTASSIUM CHLORIDE 10 MEQ CONTROLLED RELEASE TAB PO SCH (08:33)
[2017-09-28] MEDS: hydrALAZINE HCL 25 MG TAB PO SCH ×2 (08:33→20:19)
[2017-09-28] MEDS: METOPROLOL SUCCINATE 50 MG EXTENDED RELEASE TAB PO SCH (08:33)
[2017-09-28] MEDS: FUROSEMIDE 40 MG TAB PO SCH (08:33)
[2017-09-28] MEDS: HEPARIN SODIUM - SQ 10,000 UNITS/ML VIAL SQ SCH ×2 (08:34→21:00)
--- NOTE | 2017-09-28 14:20 | HHI.PYPN ---
Subjective Chief Complaint: patient depressed vague suicidal ideation Remarks Patient seen and a room nurse [place]. He should coming from [place], patient showing some slight increase affect. She does denies suicidality at this time she somewhat vague about voices but overall compliant medication. Will increase Respinol 2 mg twice a day continue to monitor weekend. Patient states she can go live with one of her siblings when she is discharged Review of Systems Except as stated in HPI: all other systems reviewed are Neg Mental Status Examination Appearance: Appropriate (appears older than stated age.) Consciousness: Alert Orientation: x4 Motor Activity: Normal gait Speech: Unremarkable Language: Adequate Fund of Knowledge: Adequate Attention and Concentration: Adequate Memory: Unremarkable Mood: Sad Affect: Other (slight decrease range and intensity) Thought Process & Associations: Intact Thought Content: Appropriate Hallucination Type: None, Tactile (vague feeling things are skin) Delusion Type: None Suicidal Ideation: No Suicidal Plan: No Suicidal Intention: No Homicidal Ideation: No Homicidal Plan: No Homicidal Intention: No Insight: Fair Judgment: Poor Results Labs Date/Time Source Procedure Growth Status 09/25/17 10:36 Urine Clean Catch Urine Culture - Final 50-100,000 CFU/ML MIXED GRAM POSITIVE... Complete Vitals/IOs Vital Signs Date Time Temp Pulse Resp B/P (MAP) Pulse Ox O2 Delivery O2 Flow Rate FiO2 09/28/17 06:25 98.3 66 18 132/67 (88) 99 09/25/17 20:41 Room Air 09/25/17 11:58 21 09/25/17 11:45 2.00 Intake and Output 09/28/17 09/28/17 09/29/17 08:00 16:00 00:00 Intake Total 120 ml Balance 120 ml Assessment & Plan Problem List: (1) Schizoaffective disorder, bipolar type ICD Codes: F25.0 - Schizoaffective disorder, bipolar type (2) Cocaine abuse ICD Codes: F14.10 - Cocaine abuse, uncomplicated Assessment & Plan Estimated LOS: days patient some increase in affect now denies suicidality. Is somewhat vague about voices today. See medication adjustment above Justification for Cont. Inpt. At this time patient will decompensate placed in a lower level of care Discharge Planning Possible placement with one of her siblings Request HC Surrog/Guard Advoc?: No Sachin Das MD Sep 28, 2017 14:20
--- NOTE | 2017-09-28 14:29 | HHI.PR ---
Subjective Remarks up and ambulating no complains, smiling and interactive requesting for a regular diet Objective Vitals Vital Signs Date Time Temp Pulse Resp B/P (MAP) Pulse Ox O2 Delivery O2 Flow Rate FiO2 09/28/17 06:25 98.3 66 18 132/67 (88) 99 09/27/17 20:45 09/27/17 20:44 97.2 86 17 157/89 (111) 99 I/O 09/27/17 09/27/17 09/27/17 09/28/17 09/28/17 09/28/17 07:00 15:00 23:00 07:00 15:00 23:00 Intake Total 240 ml 120 ml Balance 240 ml 120 ml Intake Oral 240 ml 120 ml Result Diagram: 09/25/17 1047 09/27/17 1339 Imaging Last Impressions Chest X-Ray 09/25/17 1105 Signed Impressions: Service Date/Time: Monday, September 25, 2017 11:17 - CONCLUSION: Compensated cardiomegaly otherwise negative Johan Richardson MD FACR Objective Remarks awake and alert, appears happy- smiling anicteric lungs0- no rales regular rhythm abdomen soft, nontender extremities no edema neuro examn non focal A/P Assessment and Plan 52 F Depression. Suicidal ideation/auditory hallucination and ?tactile hallucinations : management per psych HTN: continue meds. adjust as needed. better readings overall CHF: asymptomatic currently. place on a heart healthy diet and limit fluids to 1500ml/day. continue lasix. cocaine abuse: pt has been counseled on quitting acute on chronic CKD: pt admits to hx of CKD, Pt is also known as Darrell Quiñones under [id number] per Dr. Das's note. Reviewed records and Cr was 1.56 in 03/10/17. on admission Cr was 1.95. Will encourage some po hydration water 250-300ml q6hrs while awake but limit to 1500ml/day. Discussed w RN. creatinine - near baseline DVT proph: heparin and encourage ambulation d/w patient- we discussed about her diet Tutu Roblero MD Sep 28, 2017 14:29
[2017-09-28 19:02] VITALS: BP 132/87; PULSE 69; RESP 16; TEMP 98; O2SAT 98
[2017-09-28] MEDS: traZODone HCL 50 MG TAB PO SCH (20:19)
[2017-09-28] MEDS: hydrOXYzine HCL 50 MG TAB PO PRN (21:01)
[2017-09-29 05:55] VITALS: BP 139/89; PULSE 76; RESP 17; TEMP 98; O2SAT 99
[2017-09-29] MEDS: CEPHALEXIN MONOHYDRATE 500 MG CAP PO SCH ×3 (06:16→22:11)
[2017-09-29] MEDS: ENALAPRIL MALEATE 5 MG TAB PO SCH ×2 (08:59→22:31)
[2017-09-29] MEDS: hydrALAZINE HCL 25 MG TAB PO SCH ×2 (08:59→22:12)
[2017-09-29] MEDS: SERTRALINE HCL 50 MG TAB PO SCH (08:59)
[2017-09-29] MEDS: POTASSIUM CHLORIDE 10 MEQ CONTROLLED RELEASE TAB PO SCH (09:00)
[2017-09-29] MEDS: HEPARIN SODIUM - SQ 10,000 UNITS/ML VIAL SQ SCH ×2 (09:00→22:13)
[2017-09-29] MEDS: METOPROLOL SUCCINATE 50 MG EXTENDED RELEASE TAB PO SCH (09:00)
[2017-09-29] MEDS: FUROSEMIDE 40 MG TAB PO SCH (09:00)
[2017-09-29] MEDS: SPIRONOLACTONE 25 MG TAB PO SCH ×2 (09:00→18:12)
[2017-09-29] MEDS: amLODIPine BESYLATE 5 MG TAB PO SCH (09:01)
[2017-09-29] MEDS: risperiDONE ODT 1 MG TAB PO SCH ×2 (09:01→22:11)
[2017-09-29] MEDS: ASPIRIN 81 MG CHEW TAB CHEW SCH (09:01)
--- NOTE | 2017-09-29 14:51 | HHI.PYPN ---
Subjective Chief Complaint: patient depressed vague suicidal ideation Remarks Patient was seen and case discussed with nursing. Patient admits to poor compliance before admission. Insight remains poor. She says her hallucinations have resolved today. Behaving well on the unit Mental Status Examination Appearance: Appropriate (appears older than stated age.) Consciousness: Alert Orientation: x4 Motor Activity: Normal gait Speech: Unremarkable Language: Adequate Fund of Knowledge: Adequate Attention and Concentration: Adequate Memory: Unremarkable Mood: Sad Affect: Other (slight decrease range and intensity) Thought Process & Associations: Intact Thought Content: Appropriate Hallucination Type: None, Tactile (vague feeling things are skin) Delusion Type: None Suicidal Ideation: No Suicidal Plan: No Suicidal Intention: No Homicidal Ideation: No Homicidal Plan: No Homicidal Intention: No Insight: Poor Judgment: Poor Results Labs Date/Time Source Procedure Growth Status 09/25/17 10:36 Urine Clean Catch Urine Culture - Final 50-100,000 CFU/ML MIXED GRAM POSITIVE... Complete Vitals/IOs Vital Signs Date Time Temp Pulse Resp B/P (MAP) Pulse Ox O2 Delivery O2 Flow Rate FiO2 09/29/17 05:55 98.0 76 17 139/89 (106) 99 09/25/17 20:41 Room Air 09/25/17 11:58 21 09/25/17 11:45 2.00 Intake and Output 09/29/17 09/29/17 09/30/17 08:00 16:00 00:00 Intake Total 480 ml 240 ml Balance 480 ml 240 ml Assessment & Plan Problem List: (1) Schizoaffective disorder, bipolar type ICD Codes: F25.0 - Schizoaffective disorder, bipolar type (2) Cocaine abuse ICD Codes: F14.10 - Cocaine abuse, uncomplicated Assessment & Plan Continue current treatment plan Justification for Cont. Inpt. Patient would decompensate in a less restrictive setting Request HC Surrog/Guard Advoc?: No Keegan Ramon DO Sep 29, 2017 14:51
--- NOTE | 2017-09-29 16:54 | HHI.PR ---
Subjective Remarks smiling and interactive no complains no shortness of breath requesting for her maintenance inhalers Objective Vitals Vital Signs Date Time Temp Pulse Resp B/P (MAP) Pulse Ox O2 Delivery O2 Flow Rate FiO2 09/29/17 05:55 98.0 76 17 139/89 (106) 99 09/28/17 19:02 98.0 69 16 132/87 (102) 98 I/O 09/28/17 09/28/17 09/28/17 09/29/17 09/29/17 09/29/17 07:00 15:00 23:00 07:00 15:00 23:00 Intake Total 120 ml 240 ml 720 ml Balance 120 ml 240 ml 720 ml Intake Oral 120 ml 240 ml 720 ml Result Diagram: 09/25/17 1047 09/27/17 1339 Imaging Last Impressions Chest X-Ray 09/25/17 1105 Signed Impressions: Service Date/Time: Monday, September 25, 2017 11:17 - CONCLUSION: Compensated cardiomegaly otherwise negative Johan Richardson MD FACR Objective Remarks awake and alert, interactive, cooperative anicteric lungs- no rales, no wheezes regular rhythm abdomen soft, nontender extremities no edema neuro exam non focal A/P Assessment and Plan 52 F Depression. Suicidal ideation/auditory hallucination and ?tactile hallucinations : management per psych HTN: continue meds. adjust as needed. better readings overall CHF: asymptomatic currently. place on a heart healthy diet and limit fluids to 1500ml/day. continue lasix. cocaine abuse: pt has been counseled on quitting acute on chronic CKD: pt admits to hx of CKD, Pt is also known as Darrell Quiñones under [id number] per Dr. Das's note. Reviewed records and Cr was 1.56 in 03/10/17. on admission Cr was 1.95. Will encourage some po hydration water 250-300ml q6hrs while awake but limit to 1500ml/day. Discussed w RN. creatinine - near baseline COPD- in remission - restart on MDIs- per patient she is on Spiriva and Ventolin MDIs- ordered DVT proph: heparin and encourage ambulation d/w patient- we discussed about her diet Tutu Roblero MD Sep 29, 2017 16:54
[2017-09-29] MEDS: ALBUTEROL SULFATE 90 MCG/ACT HFA 8 GM INHALER INH SCH (18:12)
[2017-09-29] MEDS: TIOTROPIUM BROMIDE 18 MCG INH INH SCH (18:12)
[2017-09-29] MEDS: traZODone HCL 50 MG TAB PO SCH (22:12)
[2017-09-30] MEDS: ALBUTEROL SULFATE 90 MCG/ACT HFA 8 GM INHALER INH SCH ×4 (06:07→18:20)
[2017-09-30] MEDS: CEPHALEXIN MONOHYDRATE 500 MG CAP PO SCH ×3 (06:07→20:25)
[2017-09-30 06:14] VITALS: BP 122/74; PULSE 68; RESP 18; TEMP 98.4; O2SAT 96
[2017-09-30] MEDS: FUROSEMIDE 40 MG TAB PO SCH (09:08)
[2017-09-30] MEDS: POTASSIUM CHLORIDE 10 MEQ CONTROLLED RELEASE TAB PO SCH (09:08)
[2017-09-30] MEDS: SERTRALINE HCL 50 MG TAB PO SCH (09:08)
[2017-09-30] MEDS: ASPIRIN 81 MG CHEW TAB CHEW SCH (09:08)
[2017-09-30] MEDS: risperiDONE ODT 1 MG TAB PO SCH ×2 (09:08→20:24)
[2017-09-30] MEDS: TIOTROPIUM BROMIDE 18 MCG INH INH SCH (09:08)
[2017-09-30] MEDS: SPIRONOLACTONE 25 MG TAB PO SCH ×2 (09:08→18:20)
[2017-09-30] MEDS: amLODIPine BESYLATE 5 MG TAB PO SCH (09:09)
[2017-09-30] MEDS: ENALAPRIL MALEATE 5 MG TAB PO SCH ×2 (09:09→20:24)
[2017-09-30] MEDS: METOPROLOL SUCCINATE 50 MG EXTENDED RELEASE TAB PO SCH (09:09)
[2017-09-30] MEDS: hydrALAZINE HCL 25 MG TAB PO SCH ×2 (09:09→20:24)
[2017-09-30] MEDS: HEPARIN SODIUM - SQ 10,000 UNITS/ML VIAL SQ SCH ×2 (09:10→21:00)
--- NOTE | 2017-09-30 12:58 | HHI.PYPN ---
Subjective Chief Complaint: patient depressed vague suicidal ideation Remarks Patient was seen and case discussed with nursing. Per nursing, patient claimed last night that she was ready to go. Patient adamantly denies this and says she continues to be depressed but feeling "a little better." Seclusive to her room all day. Constricted affect. Denies suicidal or homicidal ideation intent or plan. Denies psychotic symptoms. Compliant with medications and tolerating it well Mental Status Examination Appearance: Appropriate (appears older than stated age.) Consciousness: Alert Orientation: x4 Motor Activity: Normal gait Speech: Unremarkable Language: Adequate Fund of Knowledge: Adequate Attention and Concentration: Adequate Memory: Unremarkable Mood: Sad Affect: Blunt Thought Process & Associations: Intact Thought Content: Appropriate Hallucination Type: None, Tactile (vague feeling things are skin) Delusion Type: None Suicidal Ideation: No Suicidal Plan: No Suicidal Intention: No Homicidal Ideation: No Homicidal Plan: No Homicidal Intention: No Insight: Poor Judgment: Poor Results Labs Date/Time Source Procedure Growth Status 09/25/17 10:36 Urine Clean Catch Urine Culture - Final 50-100,000 CFU/ML MIXED GRAM POSITIVE... Complete Vitals/IOs Vital Signs Date Time Temp Pulse Resp B/P (MAP) Pulse Ox O2 Delivery O2 Flow Rate FiO2 09/30/17 06:14 98.4 68 18 122/74 (90) 96 Assessment & Plan Problem List: (1) Schizoaffective disorder, bipolar type ICD Codes: F25.0 - Schizoaffective disorder, bipolar type (2) Cocaine abuse ICD Codes: F14.10 - Cocaine abuse, uncomplicated Assessment & Plan Continue current treatment plan Justification for Cont. Inpt. Patient will decompensate in a less restrictive setting Request HC Surrog/Guard Advoc?: No Keegan Ramon DO Sep 30, 2017 12:58
--- NOTE | 2017-09-30 15:28 | HHI.PR ---
Subjective Remarks Follow-up hypertension, acute on chronic kidney disease. Patient has no complaints at this time. Denies chest pain. States that her breathing is better. No nausea or vomiting. Objective Vitals Vital Signs Date Time Temp Pulse Resp B/P (MAP) Pulse Ox O2 Delivery O2 Flow Rate FiO2 09/30/17 06:14 98.4 68 18 122/74 (90) 96 I/O 09/29/17 09/29/17 09/29/17 09/30/17 09/30/17 09/30/17 07:00 15:00 23:00 07:00 15:00 23:00 Intake Total 720 ml Balance 720 ml Intake Oral 720 ml Result Diagram: 09/27/17 1339 Imaging Last Impressions Chest X-Ray 09/25/17 1105 Signed Impressions: Service Date/Time: Monday, September 25, 2017 11:17 - CONCLUSION: Compensated cardiomegaly otherwise negative Johan Richardson MD FACR Objective Remarks General: No acute distress. Heart: Regular rate and rhythm. No murmur. Lungs: Clear to auscultation bilaterally. No wheezes, rales, or rhonchi. Breathing is nonlabored. Abdomen: Soft, nontender, nondistended. Extremities: No lower extremity edema. Psych: Alert and oriented. Urinary Catheter: No Vascular Central Line Catheter: No A/P Assessment and Plan 1. Depression, suicidal ideation, auditory hallucinations: Management per psychiatry. 2. Hypertension: 3. Chronic CHF: Heart healthy diet, fluid restriction. Continue Lasix. Currently asymptomatic. 4. Cocaine abuse: Patient has been counseled. 5. Acute on chronic kidney disease: Creatinine still above baseline. Labs are pending today. 6. COPD: Asymptomatic. Continue Spiriva, Ventolin. 7. DVT prophylaxis: Heparin. Zachary Lazaro MD Sep 30, 2017 15:28
[2017-09-30 18:10] LABS: BICARBONATE 27.5 MEQ/L (21.0-32.0); POTASSIUM 4.3 MEQ/L (3.5-5.1)
[2017-09-30 18:22] VITALS: BP 126/99; PULSE 75; RESP 17; TEMP 97.1; O2SAT 99
[2017-09-30] MEDS: traZODone HCL 50 MG TAB PO SCH (20:24)
[2017-10-01] MEDS: CEPHALEXIN MONOHYDRATE 500 MG CAP PO SCH ×2 (06:01→13:22)
[2017-10-01 06:02] VITALS: BP 108/57; PULSE 74; RESP 18; TEMP 97.9; O2SAT 96
[2017-10-01] MEDS: ALBUTEROL SULFATE 90 MCG/ACT HFA 8 GM INHALER INH SCH ×4 (06:02→18:00)
[2017-10-01] MEDS: risperiDONE ODT 1 MG TAB PO SCH (10:53)
[2017-10-01] MEDS: FUROSEMIDE 40 MG TAB PO SCH (10:53)
[2017-10-01] MEDS: SERTRALINE HCL 50 MG TAB PO SCH (10:53)
[2017-10-01] MEDS: METOPROLOL SUCCINATE 50 MG EXTENDED RELEASE TAB PO SCH (10:53)
[2017-10-01] MEDS: ENALAPRIL MALEATE 5 MG TAB PO SCH (10:53)
[2017-10-01] MEDS: ASPIRIN 81 MG CHEW TAB CHEW SCH (10:54)
[2017-10-01] MEDS: POTASSIUM CHLORIDE 10 MEQ CONTROLLED RELEASE TAB PO SCH (10:54)
[2017-10-01] MEDS: amLODIPine BESYLATE 5 MG TAB PO SCH (10:54)
[2017-10-01] MEDS: hydrALAZINE HCL 25 MG TAB PO SCH (10:54)
[2017-10-01] MEDS: SPIRONOLACTONE 25 MG TAB PO SCH ×2 (10:54→18:00)
[2017-10-01] MEDS: HEPARIN SODIUM - SQ 10,000 UNITS/ML VIAL SQ SCH (10:55)
[2017-10-01] MEDS: TIOTROPIUM BROMIDE 18 MCG INH INH SCH (10:55)
[2017-10-01] MEDS ORDERED: HYDR-3799 PO (14:06)
[2017-10-01] MEDS ORDERED: METO1TAB9 PO (14:06)
[2017-10-01] MEDS ORDERED: ENAL5TAB PO (14:06)
[2017-10-01] MEDS ORDERED: KLOR10TA PO (14:06)
[2017-10-01] MEDS ORDERED: ZOLO25TA PO (14:06)
[2017-10-01] MEDS ORDERED: AMLO5 PO (14:06)
[2017-10-01] MEDS ORDERED: Albuterol Hfa Inh INH (14:06)
[2017-10-01] MEDS ORDERED: SPIRCAP INH (14:06)
[2017-10-01] MEDS ORDERED: ASPI81 CHEW (14:06)
[2017-10-01] MEDS ORDERED: TRAZ50TA12 PO (14:06)
[2017-10-01] MEDS ORDERED: FURO40TA PO (14:06)
[2017-10-01] MEDS ORDERED: CEPH500C PO (14:06)
[2017-10-01] MEDS ORDERED: RISP2TAB37 PO (14:06)
[2017-10-01] MEDS ORDERED: SPIR25 PO (14:06)
--- NOTE | 2017-10-01 14:11 | HHI.DS ---
Psychiatry Discharge Summary Inpatient Psychiatric care?: Yes Advance Directive: No Reason Not Provided: Due to Patient Condition Mental Health AdvanceDirective: No Health Care Proxy: No Admission Admission Date Sep 25, 2017 at 20:02 Admission Diagnosis: (1) Schizoaffective disorder, bipolar type ICD Code: F25.0 - Schizoaffective disorder, bipolar type (2) Cocaine abuse ICD Code: F14.10 - Cocaine abuse, uncomplicated Brief History Patient is a 52-year-old Afro-[place] female known to me from prior contact. [facility] she also has a different hospital number than the one listed above were the hospital number is [id number] I saw her in early February of this year under visit [id number]. She has a long history of cocaine abuse with multiple medical issues including cardiac issues. With the last hospitalization in February she was transferred to the medical service. She had cardiac issues. She was discharged at that medical admission after being consulted with Dr. Anderson. Discharged on Resporal 1 mg twice a day. She states she went to live with a family member and it drug infested area. In April of this year she did have a cardiac pacemaker implanted. She was noncompliant with psychotropic medications or psychiatric follow-up. She did develop increased depression with initial and mid insomnia a.m. anergy and increased crying spells. This led to her relapse into her cocaine use about a week or 2 ago. She denies voices or visions other some vague tactile hallucinations present there is increase suicidal ideation and intent. Patient did come here on a voluntary basis. The urine toxicology and this admission is also positive for cocaine and negative for alcohol. This time patient does meet criteria for inpatient psychiatric hospitalization will restart her on her Respinol 1 mg twice a day, Zoloft 50 mg in the morning trazodone 50 mg at at bedtime and Atarax 50 mg when necessary. Will refrain from benzodiazepines and opiates. Though the hospitalist consult with us. We did discuss discharge plans patient does have a daughter in [place] that may be willing to take her in when she stabilizes need to work with that or perhaps an [facility]. Tobacco Use In Past 30 Days: No Tobacco Past 30 Days Alcohol Use: Never Hospital Course Patient's initial suicidality with very perceptual abnormalities gradually softened that she became compliant with medications participating in the milieu , and detoxing from the cocaine. Patient had a good weekend. Has been compliant with medications. Today states that there is no suicidality there are no voices or visions noted. She states she has a place to go residents to go to that she is a client with [facility]. At this time I feel patient reached maximum benefit of this hospitalization thus will be discharged today with Rx 1 month, follow-up [facility] outpatient medication services and also voluntary outpatient substance abuse assessment. Also referred to NA. And absolute abstinence Results Blood Pressure 108 / 57 Vital Signs Date Time Temp Pulse Resp B/P (MAP) Pulse Ox O2 Delivery O2 Flow Rate FiO2 10/01/17 06:02 97.9 74 18 108/57 (74) 96 Laboratory Tests Test 09/30/17 17:08 Blood Urea Nitrogen 27 MG/DL (7-18) Creatinine 1.88 MG/DL (0.50-1.00) Random Glucose 132 MG/DL (74-106) Estimat Glomerular Filtration Rate 34 ML/MIN (>89) Laboratory Results Test 09/26/17 16:47 Cholesterol Level 135 MG/DL (120-200) HDL Cholesterol 60.4 MG/DL (40.0-60.0) Hemoglobin A1c 5.6 % (4.3-6.0) LDL Cholesterol 53 MG/DL (0-99) Triglycerides Level 109 MG/DL (42-150) Summary of Procedures None done Imaging Last Impressions Chest X-Ray 09/25/17 1105 Signed Impressions: Service Date/Time: Monday, September 25, 2017 11:17 - CONCLUSION: Compensated cardiomegaly otherwise negative Johan Richardson MD FACR Pending results at discharge: No Medications # of Antipsychotic meds at D/C: 1 Approp Antipsych med options 1 - Minimum of three failed multiple trials of monotherapy. 2 - Documented plan to taper to monotherapy due to previous use of multiple meds OR cross-taper in progress at D/C. 3 - Documentation of augmentation of Clozapine. 4 - Justification other than those listed in allowable values 1-3, document here : Discharge Discharge Date: Oct 01, 2017 Discharge Diagnosis: (1) Schizoaffective disorder, bipolar type Diagnosis: Principal ICD Code: F25.0 - Schizoaffective disorder, bipolar type (2) Cocaine abuse Diagnosis: Secondary ICD Code: F14.10 - Cocaine abuse, uncomplicated Pt Condition on Discharge: Stable Discharge Disposition: Discharge Home Discharge Instructions Diet Instructions: As Tolerated, No Restrictions Activities you can perform: Regular-No Restrictions Scheduled Appointment: Massimo Shields Discharge Time > 30 minutes Mental Status Examination Appearance: Appropriate (appears older than stated age.) Consciousness: Alert Orientation: x4 Motor Activity: Normal gait Speech: Unremarkable Language: Adequate Fund of Knowledge: Adequate Attention and Concentration: Adequate Memory: Unremarkable Mood: Sad Affect: Blunt Thought Process & Associations: Intact Thought Content: Appropriate Hallucination Type: None, Tactile (vague feeling things are skin) Delusion Type: None Suicidal Ideation: No Suicidal Plan: No Suicidal Intention: No Homicidal Ideation: No Homicidal Plan: No Homicidal Intention: No Insight: Poor Judgment: Poor Discharge/Advance Care Plan Health Problems: (1) Schizoaffective disorder, bipolar type (2) Cocaine abuse Goals to promote your health * To prevent worsening of your condition and complications * To maintain your health at the optimal level Directions to meet your goals Take your medications as prescribed Follow your dietary instruction Follow activity as directed Keep your appointments as scheduled Take your immunizations and boosters as scheduled If your symptoms worsen call your PCP, if no PCP go to Urgent Care Center or Emergency Room For 14/05 questions related to your inpatient stay or results of tests pending at discharge, please contact Dr. Sachin Das at Smoking is Dangerous to Your Health. Avoid second hand smoking Sachin Das MD Oct 01, 2017 14:11
--- NOTE | 2017-10-01 15:15 | PD.TTN ---
Patient Problems 1. Discharge planning 2. Medication compliance 3. Knowledge deficit 4. Lack of coping skills Progress Toward Goals Provider Present: Dr. Brie Das Provider Input: Dr. Das's treatment team met to discuss patient's treatment plan, discharge and medication. Patient is doing well and will discharged home Nurse(s) Input: Patient's nurse Omari reports patient is pleasant, cooperative, seclusive. Patient denies suicidal and homicidal Psychiatric Counselors Present: FAHEEM PainterMello Psych Therapist Input: Patient presents cooperative, pleasant and will be discharged home. Patient will have a psychiatric follow up with [facility] tomorrow. Group Spec/RT/OT/GARCIA Present: Bartolo Thomas OT Group Spec/RT/OT/GARCIA Input: Patient does not attend groups Tiara Torres [facility] Oct 01, 2017 15:15
== END 2017-10-01 19:05 | disposition home or self-care (01) | DRG 885 ==
LOC: NEPD 10:24 → NEDA 20:02 → H260 21:07
PROVIDERS: ADMIT Psychiatry & Neurology Psychiatry; ATTEND Psychiatry & Neurology Psychiatry
DX: F25.0 Schizoaffective disorder, bipolar type (principal); I13.0 Hypertensive heart and chronic kidney disease with heart failure and stage 1 through stage 4 chronic kidney disease, or unspecified chronic kidney disease; I50.9 Heart failure, unspecified; N39.0 Urinary tract infection, site not specified; N18.9 Chronic kidney disease, unspecified; Z91.19 Patient's noncompliance with other medical treatment and regimen; F14.10 Cocaine abuse, uncomplicated; J44.9 Chronic obstructive pulmonary disease, unspecified; F17.210 Nicotine dependence, cigarettes, uncomplicated; Z95.0 Presence of cardiac pacemaker
CPT/HCPCS: 71010; 80048; 80053; 80061; 80307; 81001; 83036; 85025; 87086; 93005; 94640; 94664; 96365; 96366; 96375; J0696; J1200; J1644; J7512